=== PATIENT | female | born 1935 | race African-American/Black ===

== ENCOUNTER → 2020-12-23 | Outpatient (CLI) | payer MEDICARE | END | disposition home or self-care (01) | LOC: RADMN 09:39 | DX: R13.10 Dysphagia, unspecified (principal); Z79.899 Other long term (current) drug therapy | CPT/HCPCS: 74230; 92611 ==

== ENCOUNTER 2021-03-11 03:50 | Emergency (ER) | payer MEDICARE, MEDICAID ==
[~2021-03-11] VITALS: Ht 162.6 cm; Wt 77.3 kg
[2021-03-11] MEDS ORDERED: OMEG-135 PO (04:09)
[2021-03-11] MEDS ORDERED: SIMV-259 PO (04:09)
[2021-03-11] MEDS ORDERED: FAMO20 PO (04:09)
[2021-03-11] MEDS ORDERED: LACO100 PO (04:09)
[2021-03-11 04:33] VITALS: BP 150/76
[2021-03-11] MEDS ORDERED: DiphenhydrAMINE/ZINC ACET 30 GM CREAM TP ONE (05:00)
== END 2021-03-11 05:30 | disposition home or self-care (01) ==
LOC: EMS 03:51
DX: S50.862A Insect bite (nonvenomous) of left forearm, initial encounter (principal); I10 Essential (primary) hypertension; E78.00 Pure hypercholesterolemia, unspecified; Z79.899 Other long term (current) drug therapy; W57.XXXA Bitten or stung by nonvenomous insect and other nonvenomous arthropods, initial encounter; Y93.89 Activity, other specified; Y92.89 Other specified places as the place of occurrence of the external cause; Y99.8 Other external cause status
CPT/HCPCS: 99282; Z7502; Z7610

== ENCOUNTER → 2021-06-28 | Outpatient (CLI) | payer MEDICARE, MEDICAID ==
[~2021-06-28] MED LIST: FAMO20 PO; GADOTERATE MEGLUMINE 10 MMOL/20 ML VIAL IVP ONE; IOHEXOL 350 MG/ML 75 ML VIAL ONE; LACO100 PO; OMEG-135 PO; SIMV-259 PO; SODIUM CHLORIDE 0.9% 100 ML ONE
== END | disposition home or self-care (01) ==
LOC: RADMN 08:54
PROVIDERS: ATTEND Legal Medicine
DX: G93.89 Other specified disorders of brain (principal); I67.82 Cerebral ischemia; R90.82 White matter disease, unspecified; R91.1 Solitary pulmonary nodule
CPT/HCPCS: 70553; 71260; J7050; Q9967

== ENCOUNTER 2024-02-29 11:45 | Emergency (ER) | payer MEDICARE, BC ==
[~2024-02-29] VITALS: Ht 165.1 cm; Wt 77.3 kg
[~2024-02-29 11:45] MED LIST changes: -GADOTERATE MEGLUMINE 10 MMOL/20 ML VIAL IVP ONE; -IOHEXOL 350 MG/ML 75 ML VIAL ONE; -LACO100 PO; +LACO100T14 PO; -SODIUM CHLORIDE 0.9% 100 ML ONE
[2024-02-29 12:12] VITALS: TEMP 97.9
[2024-02-29 14:34] VITALS: BP 121/77; PULSE 62; RESP 16
[2024-02-29] MEDS ORDERED: VALA500T42 PO (14:58)
[2024-02-29] MEDS ORDERED: PERCT PO (14:58)
== END 2024-02-29 15:00 | disposition home or self-care (01) ==
LOC: EMS 11:45
DX: M26.601 Right temporomandibular joint disorder, unspecified (principal); E78.00 Pure hypercholesterolemia, unspecified; I10 Essential (primary) hypertension; Z88.0 Allergy status to penicillin
CPT/HCPCS: 99283

== ENCOUNTER 2024-06-15 07:26 | Inpatient (IN) | payer MEDICARE, MEDICAID ==
[~2024-06-15] VITALS: Ht 165.1 cm; Wt 81.8 kg
[~2024-06-15 07:26] MED LIST changes: +PERCT PO; +VALA500T42 PO
[2024-06-15] MEDS: ACETAMINOPHEN 500 MG TABLET PO ONE (08:00)
[2024-06-15 08:12] LABS: BASOPHILS % (AUTO) 1.4 % (0.0-2.0); EOSINOPHILS % (AUTO) 1.7 % (1.0-6.0); HEMOGLOBIN 13.5 g/dL (12.0-16.0); LYMPHOCYTES # (AUTO) 1.1 K/uL (1.0-4.8); MEAN CORPUSCULAR HEMOGLOBIN 27.4 pg (26.0-34.0); MEAN CORPUSCULAR HGB CONC 32.2 G/dL (31.0-37.0); MEAN CORPUSCULAR VOLUME 85 fL (80-100); MONOCYTES # (AUTO) 0.5 K/uL (0.1-1.0); MONOCYTES % (AUTO) 14.2 % (2.0-9.0); NEUTROPHILS # (AUTO) 1.7 K/uL (1.8-7.7); NEUTROPHILS % (AUTO) 49.7 % (40.0-70.0); PLATELET COUNT (AUTO) 139 K/uL (150-450); RED BLOOD CELL COUNT(AUTO) 4.94 MIL/uL (4.00-5.20); RED CELL DISTRIBUTION WIDTH 15.4 % (11.5-14.5); WHITE BLOOD COUNT (AUTO) 3.5 K/uL (4.5-11.0)
[2024-06-15] MEDS ORDERED: LOSA-382 PO (08:28)
[2024-06-15] MEDS ORDERED: LEVE-71 PO (08:28)
[2024-06-15 08:48] LABS: ALANINE AMINOTRANSFERASE 14 U/L (12-78); ALKALINE PHOSPHATASE 74 U/L (46-116); ASPARTATE AMINOTRANSFERASE 16 U/L (15-37); BILIRUBIN,TOTAL 0.5 mg/dL (0.1-1.0); CALCIUM, TOTAL 8.3 mg/dL (8.8-10.5); CARBON DIOXIDE 28 mmol/L (22-29); CREATININE 0.84 mg/dL (0.60-1.30); GLOMERULAR FILTR. RATE CALC > 60 mL/min (>60); GLUCOSE,RANDOM 87 mg/dL (70-110); TOTAL PROTEIN, SERUM 7.5 g/dL (6.4-8.2); UREA NITROGEN, BLOOD 6 mg/dL (7-18)
[2024-06-15 08:49] LABS: TROPONIN I-HIGH SENSITIVITY 5 ng/L (<51)
[2024-06-15 09:13] LABS: APPEARANCE,URINE CLEAR (CLEAR); BILIRUBIN,URINE NEGATIVE (NEGATIVE); COLOR,URINE COLORLESS (YELLOW); GLUCOSE, URINE (UA) NEGATIVE (NEGATIVE); KETONES,URINE NEGATIVE (NEGATIVE); LEUKOCYTE ESTERASE ,URINE SMALL (NEGATIVE); NITRATE,URINE NEGATIVE (NEGATIVE); OCCULT BLOOD,URINE NEGATIVE (NEGATIVE); PH,URINE 6.5 (5.0-8.0); PROTEIN,URINE NEGATIVE (NEGATIVE); SPECIFIC GRAVITIY, URINE 1.005 (1.003-1.030); UROBILINOGEN,URINE <=1.0 mg/dL (<=1.0)
[2024-06-15 09:15] LABS: ANION GAP 9 mmol/L (8-16); CHLORIDE 105 mmol/L (98-107); POTASSIUM 3.9 mmol/L (3.5-5.1); SODIUM SERUM 142 mmol/L (136-145)
[2024-06-15 09:23] LABS: BACTERIA,URINE None Seen /HPF (None Seen); RBC,URINE None Seen /HPF (0-2); SQUAMOUS EPITHELIAL CELL,UR Rare /LPF (None Seen)
[2024-06-15] MEDS: MECLIZINE HCL 25 MG TABLET PO ONE (09:33)
[2024-06-15] MEDS ORDERED: ONDANSETRON HCL 4 MG/2 ML VIAL IVP PRN (12:00)
[2024-06-15] MEDS ORDERED: SODIUM CHLORIDE 0.9% 100 ML ONE (12:00)
[2024-06-15] MEDS ORDERED: ACETAMINOPHEN 325 MG TABLET PO PRN (12:00)
[2024-06-15] MEDS ORDERED: MECLIZINE HCL 12.5 MG TABLET PO PRN (12:00)
[2024-06-15] MEDS ORDERED: IOHEXOL 350 MG/ML 100 ML VIAL ONE (12:00)
[2024-06-15] MEDS ORDERED: 0.9% SODIUM CHLORIDE 10 ML SYRINGE IVP ONE (12:00)
[2024-06-15] MEDS: ASPIRIN 81 MG CHEWABLE TABLET PO ONE (12:48)
[2024-06-15] MEDS: ATORVASTATIN CALCIUM 40 MG TABLET PO ONE (12:48)
[2024-06-15] MEDS: SODIUM CHLORIDE 0.9% 500 ML IV ONE (12:49)
[2024-06-15] MEDS ORDERED: HEPARIN SODIUM,PORCINE 5,000 UNITS/ML VIAL IVP PRN ×2 (15:15)
[2024-06-15] MEDS: HEPARIN SODIUM,PORCINE 5,000 UNITS/ML VIAL IVP ONE (15:31)
[2024-06-15] MEDS: HEPARIN SODIUM 25000 UNITS/D5W 250 ML IV PRN (15:35)
[2024-06-15 15:42] LABS: PROTHROMBIN TIME 10.5 SEC (9.4-11.6)
[2024-06-15 15:50] LABS: HEMATOCRIT 43.5 % (36-46); HEMOGLOBIN 14.1 g/dL (12.0-16.0); MEAN CORPUSCULAR HEMOGLOBIN 27.5 pg (26.0-34.0); MEAN CORPUSCULAR HGB CONC 32.5 G/dL (31.0-37.0); MEAN CORPUSCULAR VOLUME 85 fL (80-100); PLATELET COUNT (AUTO) 156 K/uL (150-450); RED BLOOD CELL COUNT(AUTO) 5.13 MIL/uL (4.00-5.20); RED CELL DISTRIBUTION WIDTH 15.4 % (11.5-14.5)
[2024-06-15] MEDS ORDERED: HEPARIN SODIUM,PORCINE 5,000 UNITS/ML VIAL SQ SCH (16:00)
[2024-06-15 16:07] LABS: BAND NEUTROPHILS % (MANUAL) 2 % (0-5); EOSINOPHILS % (MANUAL) 3 % (1-6); LYMPHOCYTES % (MANUAL) 32 % (22-44); MONOCYTES % (MANUAL) 9 % (2-9); RBC MORPHOLOGY COMMENT NORMAL RBC MORPH; SEGMENTED NEUTROPHILS % 54 % (40-70); TOTAL CELLS COUNTED 100
[2024-06-15 16:15] VITALS: BP 141/87; PULSE 66; RESP 19; TEMP 98.1; O2SAT 95
[2024-06-15 19:54] VITALS: BP 120/73; PULSE 71; RESP 18; TEMP 98.1; O2SAT 97
[2024-06-15 19:56] VITALS: BP 120/73; PULSE 71; RESP 19; TEMP 98.1; O2SAT 97
[2024-06-15] MEDS: DOCUSATE SODIUM 100 MG CAPSULE PO SCH (21:00)
[2024-06-15] MEDS: LevETIRAcetam 500 MG TABLET PO ONE (22:37)
[2024-06-16 00:19] VITALS: BP 97/66; PULSE 65; RESP 18; TEMP 97.5; O2SAT 98
[2024-06-16 05:00] VITALS: BP 119/70; PULSE 63; RESP 16; TEMP 97.9; O2SAT 97
[2024-06-16 07:41] VITALS: BP 130/77; PULSE 65; RESP 18; TEMP 98.1; O2SAT 98
[2024-06-16] MEDS: LOSARTAN POTASSIUM 50 MG TABLET PO SCH (08:06)
[2024-06-16] MEDS: ATORVASTATIN CALCIUM 40 MG TABLET PO SCH (08:06)
[2024-06-16] MEDS: LevETIRAcetam 500 MG TABLET PO SCH (08:06)
[2024-06-16] MEDS: ASPIRIN 81 MG CHEWABLE TABLET PO SCH (08:07)
[2024-06-16 08:12] LABS: BASOPHILS % (AUTO) 0.7 % (0.0-2.0); EOSINOPHILS % (AUTO) 2.7 % (1.0-6.0); HEMATOCRIT 40.7 % (36-46); HEMOGLOBIN 13.4 g/dL (12.0-16.0); LYMPHOCYTES # (AUTO) 0.8 K/uL (1.0-4.8); LYMPHOCYTES % (AUTO) 23.6 % (22.0-44.0); MEAN CORPUSCULAR HEMOGLOBIN 28.2 pg (26.0-34.0); MEAN CORPUSCULAR VOLUME 85 fL (80-100); MONOCYTES # (AUTO) 0.5 K/uL (0.1-1.0); MONOCYTES % (AUTO) 12.9 % (2.0-9.0); NEUTROPHILS # (AUTO) 2.1 K/uL (1.8-7.7); NEUTROPHILS % (AUTO) 60.1 % (40.0-70.0); PLATELET COUNT (AUTO) 129 K/uL (150-450); RED BLOOD CELL COUNT(AUTO) 4.77 MIL/uL (4.00-5.20); WHITE BLOOD COUNT (AUTO) 3.5 K/uL (4.5-11.0)
[2024-06-16 08:31] LABS: ANION GAP 7 mmol/L (8-16); CALCIUM, TOTAL 8.8 mg/dL (8.8-10.5); CARBON DIOXIDE 28 mmol/L (22-29); CHLORIDE 106 mmol/L (98-107); CREATININE 0.63 mg/dL (0.60-1.30); GLOMERULAR FILTR. RATE CALC > 60 mL/min (>60); GLUCOSE,RANDOM 89 mg/dL (70-110); SODIUM SERUM 141 mmol/L (136-145); UREA NITROGEN, BLOOD 8 mg/dL (7-18)
[2024-06-16 11:15] VITALS: BP 135/87; PULSE 69; RESP 17; TEMP 98.2; O2SAT 99
[2024-06-16 16:06] VITALS: BP 134/79; PULSE 65; RESP 18; TEMP 98.2; O2SAT 93
[2024-06-16 19:56] VITALS: BP 114/72; PULSE 69; RESP 18; TEMP 97.9; O2SAT 93
[2024-06-17] VITALS (7 sets, daily range): BP systolic 106–142; BP diastolic 65–85; PULSE 55–81; RESP 18; TEMP 97.9–98.4; O2SAT 96–98
[2024-06-17] MEDS ORDERED: IOHEXOL 350 MG/ML 100 ML VIAL ONE (12:16)
[2024-06-17] MEDS ORDERED: SODIUM CHLORIDE 0.9% 100 ML ONE (12:16)
[2024-06-18 04:18] VITALS: BP 125/76; PULSE 57; RESP 18; TEMP 98.1; O2SAT 97
[2024-06-18 08:00] VITALS: BP 123/69; PULSE 58; RESP 18; TEMP 97.8; O2SAT 97
[2024-06-18] MEDS ORDERED: ASPI-1450 PO (11:05)
[2024-06-18] MEDS ORDERED: ATOR40TA71 PO (11:05)
[2024-06-18] MEDS ORDERED: MECL-226 PO (11:05)
[2024-06-18 12:06] VITALS: BP 132/78; PULSE 76; RESP 16; TEMP 97.6; O2SAT 98
== END 2024-06-18 13:45 | disposition home or self-care (01) | DRG 149 ==
LOC: EMS 07:26 → EDH 14:32 → 5S 15:50
PROVIDERS: ADMIT Internal Medicine; ATTEND Internal Medicine
DX: H81.10 Benign paroxysmal vertigo, unspecified ear (principal); D68.9 Coagulation defect, unspecified; H53.2 Diplopia; G40.909 Epilepsy, unspecified, not intractable, without status epilepticus; I10 Essential (primary) hypertension; R26.89 Other abnormalities of gait and mobility; G44.209 Tension-type headache, unspecified, not intractable; Z79.82 Long term (current) use of aspirin; Z86.011 Personal history of benign neoplasm of the brain; Z88.0 Allergy status to penicillin; Z79.899 Other long term (current) drug therapy
CPT/HCPCS: 70450; 70496; 70544; 70551; 71045; 74177; 80048; 80053; 81001; 82271; 83735; 84484; 85025; 85610; 85730; 93005; 97116; 97162; 99285; J1644; J7040; J7050; 36415-L1; 36415-TC